=== PATIENT | male | born 1975 | race Caucasian/White ===

== ENCOUNTER 2017-06-10 14:01 | Emergency (ER) | payer SELFPAY ==
[~2017-06-10] VITALS: Ht 172.7 cm; Wt 82.0 kg
[~2017-06-10 14:01] MED LIST: CEPH500C3 PO; IBUP800 PO; TRAM50TA PO
[2017-06-10 14:02] VITALS: BP 135/100; PULSE 86; RESP 20; TEMP 98.8; O2SAT 98
--- NOTE | 2017-06-10 16:04 | PD ---
Physical Exam Date Seen by Provider: Jun 10, 2017 Time Seen by Provider: 16:00 Narrative 41 y/o male with Laceration to Right Volar forearm from a Sharp end of a pipe while working. Laceration is estimated at 5 cm. Pain is 7/10. Denies Numbness. ROM seems intact. Last Tetanus 1 year ago. Vital Signs reviewed. Patient is Stable and awaiting Bed Placement. Data Data Last Documented VS Vital Signs Date Time Temp Pulse Resp B/P (MAP) Pulse Ox O2 Delivery O2 Flow Rate FiO2 06/10/17 14:02 98.8 86 20 135/100 (112) 98 Room Air [facility] Medical Record Reviewed: Yes Supervised Visit with GEORGINA: Yes Condition: Stable Boo Kinsey Jun 10, 2017 16:04
--- NOTE | 2017-06-10 16:23 | PD ---
HPI Chief Complaint: Laceration/Skin Injury Time Seen by Provider: 16:22 Travel History International Travel<30 days: No Contact w/Intl Traveler<30days: No Traveled to known affect area: No History of Present Illness HPI 41-year-old male presents emergency Department with complaint of a laceration to his right forearm from today while at work. This was a heavy pipe and it fell onto his arm and then the sharp and caused the laceration. Reports being up-to-date on his tetanus vaccination. Denies paresthesias, loss of sensation, decreased range of motion, decreased strength to the affected extremity. Has applied pressure and bandage to control bleeding. Denies anticoagulant. Symptoms are moderate in severity. No known allergies. Has no other complaints. No other modifying factors or associated signs and symptoms. [facility] Social History Alcohol Use: Yes Tobacco Use: No Substance Use: No Allergies-Medications (Allergen,Severity, Reaction): Coded Allergies: No Known Allergies (Unverified , 06/10/17) Reported Meds & Prescriptions Reported Meds & Active Scripts Active No Active Prescriptions or Reported Medications Review of Systems Except as stated in HPI: all other systems reviewed are Neg Physical Exam Narrative GENERAL: Well-nourished, well-developed male patient, in no acute distress SKIN: Warm and dry. Approximately 3 cm laceration to the volar aspect of the right forearm; moderate amount of bright red drainage; without erythema, edema; right hand is with full range of motion at all finger joints and sensory intact ; good cap refill; 2+ radial pulse. HEAD: Atraumatic. Normocephalic. EYES: Pupils equal and round. No scleral icterus. No injection or drainage. ENT: Mucosa pink and moist. Airway patent. NECK: Trachea midline. CARDIOVASCULAR: Regular rate. RESPIRATORY: No accessory muscle use. GASTROINTESTINAL: Flat. MUSCULOSKELETAL: No obvious deformities. No clubbing. No cyanosis. No edema. NEUROLOGICAL: Awake and alert. Oriented 3. No obvious cranial nerve deficits. Motor grossly within normal limits. Normal speech. PSYCHIATRIC: Appropriate mood and affect; insight and judgment normal. Data Data Last Documented VS Vital Signs Date Time Temp Pulse Resp B/P (MAP) Pulse Ox O2 Delivery O2 Flow Rate FiO2 06/10/17 14:02 98.8 86 20 135/100 (112) 98 Room Air Orders Orders Lidocai-Epi 1%-1:100,000 Inj (Xylocaine- (06/10/17 16:30) Acetamin-Hydrocod 325-5 Mg ([place] 5-325 (06/10/17 16:30) Forearm (2vws) (06/10/17 16:28) Lidocai-Epi 2%-1:100,000 Inj (Xylocaine- (06/10/17 16:30) MDM Medical Decision Making Medical Screen Exam Complete: Yes Emergency Medical Condition: Yes Medical Record Reviewed: Yes Differential Diagnosis Laceration, contusion, abrasion, forearm fracture Narrative Course 41-year-old male with right forearm laceration and injury. Up-to-date on tetanus vaccination. Lortab administered in the ER. See my procedure note laceration repair. Keflex, ibuprofen prescribed for home. Instructed patient to follow up with primary care provider. Patient verbalizes understanding and agreement with treatment plan. Patient is medically cleared and stable for discharge. Discussed reasons to return to the emergency department. Patient agrees with treatment plan. The patients vital signs are stable and the patient is stable for outpatient follow-up and treatment. Patient discharged home, stable and in no acute distress. Procedures Procedure Narrative LACERATION LOCATION: Volar aspect of right forearm LENGTH: 3 cm NUMBER OF STITCHES/LEONEL: 3 internal simple interrupted sutures; 7 leonel REPAIR: The area of the laceration was prepped with Betadine and sterilely draped. The laceration was infiltrated with 1% lidocaine with epinephrine. The wound was copiously irrigated and explored without evidence of foreign body, tendon injury or neurovascular injury. The wound was closed using 4-0 Vicryl and leonel. This was a double layer repair. A sterile dressing was applied. The patient was advised to keep the dressing clean and dry. Patient tolerated the procedure well. Diagnosis Primary Impression: Laceration of forearm, right Qualified Codes: S51.811A - Laceration without foreign body of right forearm, initial encounter Referrals: Primary Care Physician Departure Forms: Tests/Procedures, Work Release Enter return to work date: Jun 17, 2017 Additional Instructions: Antibiotics as prescribed Keep area clean and dry; topical antibiotic to laceration as directed and as needed for wound care; keep area covered with a bandage Ibuprofen or Tylenol as directed and as needed for pain and inflammation Ice pack to area as needed to decrease pain Return to the emergency department or follow-up with primary care provider in 10 -14 days for staple removal Follow up with primary care provider within 2-4 days Return to the emergency department immediately with worsening of symptoms, particularly if reddened streaks up or down the affected extremity from the staple site, fever, numbness/tingling in the affected extremity, loss of sensation in the affected extremity, severe swelling of the affected Med/Other Pt SpecificInfo: Prescription(s) given Scripts No Active Prescriptions or Reported Meds Disposition: 01 DISCHARGE HOME Condition: Stable Maribel Infante Jun 10, 2017 16:23
[2017-06-10] MEDS ORDERED: ACETAMINOPHEN/HYDROcodone 325 MG/5 MG TAB PO ONE (16:30)
[2017-06-10] MEDS ORDERED: LIDOCAINE 2%/EPINEPHrine 1:100,000 20ML MDV INFIL ONE (16:30)
[2017-06-10] MEDS ORDERED: LIDOCAINE 1%/EPINEPHrine 1:100,000 SOLN 20 ML VIAL INFIL ONE (16:30)
[2017-06-10] MEDS ORDERED: CEPH-460 PO (16:33)
[2017-06-10] MEDS ORDERED: IBUP800T23 PO (16:33)
--- NOTE | 2017-06-10 17:00 | RADRPT ---
EXAM DATE/TIME: 06/10/2017 16:48 [place] COMPARISON: No previous studies available for comparison. INDICATIONS : Laceration to distal half of right forearm. MEDICAL HISTORY : None. SURGICAL HISTORY : None. ENCOUNTER: Initial ACUITY: 1 day PAIN SCORE: 8/10 LOCATION: Right forearm FINDINGS: Two view examination of the right forearm demonstrates no evidence of fracture or dislocation. Lacera tion with soft tissue swelling. There is debris within the superficial soft tissues. CONCLUSION: Soft tissue laceration with debris in the soft tissues. Adam Gupta MD on June 10, 2017 at 16:55 Board Certified Radiologist. This report was verified electronically.
== END 2017-06-10 18:10 | disposition home or self-care (01) ==
LOC: NEPK 14:01
DX: S51.811A Laceration without foreign body of right forearm, initial encounter (principal); W20.8XXA Other cause of strike by thrown, projected or falling object, initial encounter
CPT/HCPCS: 12002; 12032; 73090

== ENCOUNTER 2017-06-21 20:44 | Emergency (ER) | payer SELFPAY ==
[2017-06-21 20:45] VITALS: BP 121/77; PULSE 76; RESP 16; TEMP 98.6; O2SAT 99
--- NOTE | 2017-06-21 22:38 | PD ---
HPI Chief Complaint: Wound/Suture/Staple Re-Check Time Seen by Provider: 22:35 Travel History International Travel<30 days: No Contact w/Intl Traveler<30days: No Traveled to known affect area: No History of Present Illness HPI 41-year-old male presents to urgent department with a laceration to the right forearm which occurred on the of last month. He is here to have leonel removed. He has no complaints. [facility] Past Medical History Medical History: Denies Significant Hx Tetanus Vaccination: < 5 Years Past Surgical History Surgical History: No Previous Surgery Social History Alcohol Use: Yes (OCC) Tobacco Use: No Substance Use: No Allergies-Medications (Allergen,Severity, Reaction): Coded Allergies: No Known Allergies (Unverified , 06/21/17) Reported Meds & Prescriptions Reported Meds & Active Scripts Active No Active Prescriptions or Reported Medications Review of Systems Except as stated in HPI: all other systems reviewed are Neg Physical Exam Narrative GENERAL: This is a well-nourished, well-developed patient, in no apparent distress. SKIN: No rashes, ecchymoses or lesions. Warm and dry. Well-healed laceration to the right forearm. No signs of infection. [place] intact. HEAD: Atraumatic. Normocephalic. EYES: PERRL, EOMI, no discharge or injection. No scleral icterus. EARS: Clear NOSE: Nasal turbinates appear normal. THROAT: Mucosa pink and moist. Airway patent. NECK: Trachea midline. supple, moves head freely. LUNGS: Clear to auscultation. CV: Regular in rhythm. ABDOMEN: Soft nontender. EXT: No clubbing cyanosis or edema. Data Data Last Documented VS Vital Signs Date Time Temp Pulse Resp B/P (MAP) Pulse Ox O2 Delivery O2 Flow Rate FiO2 06/21/17 20:45 98.6 76 16 121/77 (92) 99 Room Air MDM Medical Decision Making Medical Screen Exam Complete: Yes Emergency Medical Condition: Yes Medical Record Reviewed: Yes Differential Diagnosis Patient is here for a suture/staple removal Narrative Course Patient Leonel are removed without incidence. The laceration is well-healed without infection. Diagnosis Primary Impression: Removal of staple Patient Instructions: General Instructions Additional Instructions: Rest. Daily wound care with soap and water and apply Neosporin. Keep clean and dry. Return to the ER if any problems. Med/Other Pt SpecificInfo: Wound Care Scripts No Active Prescriptions or Reported Meds Disposition: 01 DISCHARGE HOME Condition: Good Daniel Flood Jun 21, 2017 22:38
== END 2017-06-21 23:25 | disposition home or self-care (01) ==
LOC: NED 20:44
DX: S51.811D Laceration without foreign body of right forearm, subsequent encounter (principal); X58.XXXD Exposure to other specified factors, subsequent encounter; Z48.02 Encounter for removal of sutures
CPT/HCPCS: 99281